=== PATIENT | male | born 1995 | race Caucasian/White ===

== ENCOUNTER 2017-01-16 09:16 | Emergency (ER) | payer BC ==
[2017-01-16 09:51] VITALS: BP 126/62
--- NOTE | 2017-01-16 10:49 | UC ---
Respiratory Complaint HPI - HPI Summary HPI Summary: Pt c/o cough, nasal congestion, chills, malaise, X 4 days "burning chest" x 1 day. - History of Current Complaint Chief Complaint: UCRespiratory Stated Complaint: COLD SYMPTOMS Time Seen by Provider: 01/16/17 10:41 Hx Obtained From: Patient Onset/Duration: Gradual Onset, Lasting Days, Worse Since - onset Timing: Constant Severity Initially: Mild Severity Currently: Mild Character: Cough: Nonproductive Associated Signs And Symptoms: Positive: Fever, Chills, URI, Nasal Congestion - Risk Factors Pulmonary Embolism Risk Factors: Negative Cardiac Risk Factors: Negative Pseudomonas Risk Factors: Negative Tuberculosis Risk Factors: Negative - Allergies/Home Medications Allergies/Adverse Reactions: Allergies Allergy/AdvReac Type Severity Reaction Status Date / Time No Known Allergies Allergy Verified 01/16/17 09:50 PMH/Surg Hx/FS Hx/Imm Hx Previously Healthy: Yes - Surgical History Surgical History: None - Family History Known Family History: Positive: Cardiac Disease - Social History Occupation: Employed Full-time, Student - [employer] Lives: With Family Alcohol Use: Rare Substance Use Type: None Smoking Status (MU): Never Smoked Tobacco Have You Smoked in the Last Year: No - Immunization History Most Recent Influenza Vaccination: none Vaccination Up to Date: Yes Review of Systems Constitutional: Chills, Fatigue Skin: Negative Eyes: Negative ENT: Sore Throat Respiratory: Cough Cardiovascular: Negative Gastrointestinal: Negative Genitourinary: Negative Motor: Negative Neurovascular: Negative Musculoskeletal: Myalgia Neurological: Negative Psychological: Negative Is Patient Immunocompromised?: No All Other Systems Reviewed And Are Negative: Yes Physical Exam Triage Information Reviewed: Yes Appearance: Ill-Appearing Vital Signs: Initial Vital Signs Temp 99 F 01/16/17 09:47 Pulse 88 01/16/17 09:47 Resp 18 01/16/17 09:47 BP 126/62 01/16/17 09:47 Pulse Ox 100 01/16/17 09:47 Vital Signs Reviewed: Yes Eye Exam: Normal ENT Exam: Other ENT: Positive: Nasal congestion Dental Exam: Normal Neck exam: Normal Respiratory Exam: Normal Cardiovascular Exam: Normal Musculoskeletal Exam: Normal Neurological Exam: Normal Psychological Exam: Normal Skin Exam: Normal UC Diagnostic Evaluation - Laboratory O2 Sat by Pulse Oximetry: 100 Respiratory Course/Dx - Differential Dx/Diagnosis Differential Diagnosis/HQI/PQRI: Bronchitis, Influenza, Sinusitis Provider Diagnoses: Bronchitis. sinusitis Discharge - Discharge Plan Condition: Stable Disposition: HOME Prescriptions: Amoxicillin PO (*) [Amoxicillin 875 MG (*)] 875 mg PO Q12H #14 tab Pseudoephedrine-Guaifenesin [Mucinex D 60-600 mg] 1 tab PO DAILY #7 tab Patient Education Materials: Sinusitis (ED), Acute Bronchitis (ED) Referrals: [facility] [Outside] - If Needed
== END 2017-01-16 10:56 | disposition home or self-care (01) ==
LOC: UCCORT 09:16
DX: J40 Bronchitis, not specified as acute or chronic (principal); J32.9 Chronic sinusitis, unspecified
CPT/HCPCS: 99202; G0463

== ENCOUNTER 2017-04-24 19:53 | Emergency (ER) | payer BC ==
[2017-04-24 20:58] VITALS: BP 137/72
[2017-04-24] MEDS ORDERED: Acetaminophen TAB* 325 MG PO ONE (21:53)
--- NOTE | 2017-04-24 21:54 | UC ---
FLU HPI - HPI Summary HPI Summary: Pt with sore throat, non productive cough, wheeze and body aches since last pm + fevers Pt with + contact no sob, cp, abd pain no n/v/d Pt did not take any OTC products + fatigue pt states felt "couldn't get out of bed" missed class today - [employer] Pt's medications reviewed this visit - History of Current Complaint Chief Complaint: UCGeneralIllness Stated Complaint: SORE THROAT/HEADACHE/COUGH Time Seen by Provider: 04/24/17 21:48 Hx Obtained From: Patient Onset/Duration: Sudden Onset Severity Currently: Mild Severity Initially: Moderate Pain Intensity: 6 Pain Scale Used: 0-10 Numeric Associated Signs & Symptoms: Positive: Fever, Myalgia, Cough, Headache Related Hx: Possible Flu/Infectious Exposure - Allergy/Home Medications Allergies/Adverse Reactions: Allergies Allergy/AdvReac Type Severity Reaction Status Date / Time No Known Allergies Allergy Verified 01/16/17 09:50 PMH/Surg Hx/FS Hx/Imm Hx Previously Healthy: Yes - Surgical History Surgical History: None - Family History Known Family History: Positive: Cardiac Disease - Social History Occupation: Student Lives: With Family Alcohol Use: Rare Substance Use Type: None Smoking Status (MU): Never Smoked Tobacco Have You Smoked in the Last Year: No - Immunization History Most Recent Influenza Vaccination: none Vaccination Up to Date: Yes Review of Systems Constitutional: Fever Skin: Negative Eyes: Negative ENT: Sore Throat, Nasal Discharge, Sinus Congestion Respiratory: Cough Cardiovascular: Negative Gastrointestinal: Negative Genitourinary: Negative Motor: Negative Neurovascular: Negative Musculoskeletal: Arthralgia, Myalgia Neurological: Negative Psychological: Negative All Other Systems Reviewed And Are Negative: Yes Physical Exam Triage Information Reviewed: Yes Appearance: Well-Nourished - tired appearing, coarse cough Vital Signs: Initial Vital Signs Temp 99.4 F 04/24/17 20:53 Pulse 106 04/24/17 20:53 Resp 16 04/24/17 20:53 BP 137/72 04/24/17 20:53 Pulse Ox 98 04/24/17 20:53 Eye Exam: Normal Eyes: Positive: Conjunctiva Clear ENT: Positive: Other - TM x 2 clear turbinates inflammed and boggy + PND no exudate + erythema uvula midline Dental Exam: Normal Neck exam: Normal Neck: Positive: Supple, Nontender, No Lymphadenopathy Respiratory: Positive: Chest non-tender, Lungs clear, Other: - coarse dry cough Cardiovascular Exam: Normal Cardiovascular: Positive: RRR, No Murmur, Pulses Normal Abdominal Exam: Normal Abdomen Description: Positive: Nontender, No Organomegaly, Soft Musculoskeletal Exam: Normal Neurological Exam: Normal Psychological Exam: Normal Skin Exam: Normal Flu Course/Dx - Course Course Of Treatment: pt with body aches, fevers, cough x 2 days. Pt with fever here -no antipyretic today. Pt with + flu here. hydrate. motrin/apap. secretion precaution. school note. return precaution - Differential Dx/Diagnosis Provider Diagnoses: influenza Discharge - Discharge Plan Condition: Stable Disposition: HOME Prescriptions: Oseltamivir CAP* [Tamiflu CAP*] 75 mg PO BID #9 cap Patient Education Materials: Influenza (ED) Forms: *Gen. Provider Communication, *Work Release Referrals: No Primary Care Phys,NOPCP [Primary Care Provider] - Additional Instructions: - Stay well hydrated. Drink plenty of non-alcoholic, non-caffinated beverages. - Alternate ibuprofen (Advil, Motrin) 600mg and Tylenol every 3 hours for pain or fever. Take with food. Do NOT take for more than 4-5 days. - These infections are spread by secretions - do NOT share eating or drinking utensils - clean items you share with other people such as cell phones, computer mouse, TV remote, computer tablets, etc. After you have taken Tamiflu for 3 days, change your toothbrush and your pillowcase. - get plenty of restful sleep - humidify the air in the room where you sleep - boil water, run a hot steam shower, vaporizer, cups of water by heat register - okay to take over the counter decongestant and cough medication - contact student health, return here, or go to the emergency department with questions or concerns
[2017-04-24] MEDS ORDERED: Oseltamivir CAP* 75 MG CAP PO ONE (22:37)
== END 2017-04-24 22:48 | disposition home or self-care (01) ==
LOC: UCCORT 19:53
DX: J11.1 Influenza due to unidentified influenza virus with other respiratory manifestations (principal)
CPT/HCPCS: 87502; 99212; A9270-GY; G0463

== ENCOUNTER 2018-05-17 15:27 | Emergency (ER) | payer BC, OTHER ==
[2018-05-17 16:04] VITALS: BP 146/80
[2018-05-17] MEDS ORDERED: Lidocaine 1%* 5 ML VIAL INJ ONE (16:05)
--- NOTE | 2018-05-17 16:05 | UC ---
General HPI - HPI Summary HPI Summary: PT HAD AN EXHAUST PART HIT HIM ON THE L HAND CAUSING A CUT. OCCURRED AT WORK. NO FB SENSATION OR LIMITED ROM. LAST TETANUS WAS IN 2013. - History of Current Complaint Chief Complaint: UCLaceration Stated Complaint: LEFT HAND INJURY (WC) Time Seen by Provider: 05/17/18 15:59 Hx Obtained From: Patient Onset/Duration: Sudden Onset Pain Intensity: 2 Associated Signs & Symptoms: Negative: Edema, Fever, Weakness - Allergy/Home Medications Allergies/Adverse Reactions: Allergies Allergy/AdvReac Type Severity Reaction Status Date / Time No Known Allergies Allergy Verified 05/17/18 15:56 Home Medications: Home Medications NK [No Home Medications Reported] 05/17/18 [History Confirmed 05/17/18] PMH/Surg Hx/FS Hx/Imm Hx Previously Healthy: Yes - Surgical History Surgical History: None - Family History Known Family History: Positive: Cardiac Disease - Social History Occupation: Employed Full-time Alcohol Use: Rare Substance Use Type: None Smoking Status (MU): Never Smoked Tobacco Have You Smoked in the Last Year: No - Immunization History Most Recent Influenza Vaccination: none Hx Tetanus, Diphtheria Vaccination: Yes Vaccination Up to Date: Yes Review of Systems All Other Systems Reviewed And Are Negative: Yes Physical Exam Triage Information Reviewed: Yes Appearance: Well-Appearing Vital Signs: Initial Vital Signs Temp 99.3 F 05/17/18 15:50 Pulse 86 05/17/18 15:50 Resp 18 05/17/18 15:50 BP 146/80 05/17/18 15:50 Pulse Ox 98 05/17/18 15:50 Vital Signs Reviewed: Yes Eyes: Positive: Conjunctiva Clear ENT: Positive: Normal ENT inspection Respiratory: Positive: Lungs clear Cardiovascular: Positive: RRR Abdomen Description: Positive: Nontender Musculoskeletal: Positive: Other: - L HAND: 4CM LACERATION DORSUM. FAT SEEN. NO FB, MM OR TENDON INJURY. HAND HAS FULL S/V/M FUNCTION. DORSAL FOREARM WITH A VERY SUPERFICIAL ABRASION. Neurological: Positive: Alert Psychological: Positive: Age Appropriate Behavior Skin Exam: Normal Course/Dx - Course Course Of Treatment: PROCEDURE: PT WASHED THE L FOREARM ABRASION WITH SOAP AND WATER. TIME OUT. THE L HAND WAS PREP WITH BETADINE. LOCAL WITH 1% LIDOCAINE. WOUND EXPLORED AND NO FB , MUSCLE, TENDON INJURY FOUND. IRRIGATED UNDER PRESSURE WITH STERILE NACL 500ML. SITE PREP AGAIN WITH BETADINE, DRAP STERILE FASHION AND CLOSED WITH 5-0 NYLON AND 3 SIMPLE PLUS 2 HORIZONTAL STITCHES. STERILE TECHNIQUE USED. PT TOLERATED WELL. LENGTH IS 4CM. NURSING APPLIED A DRESSING. ONLY SCANT BLEEDING FROM WOUND. NO HX HTN, BP VISIT RELATED. - Diagnoses Provider Diagnosis: Laceration of left hand Discharge - Sign-Out/Discharge Documenting (check all that apply): Patient Departure All imaging exams completed and their final reports reviewed: No Studies - Discharge Plan Condition: Stable Disposition: HOME Patient Education Materials: Care For Your Stitches (DC) Referrals: No Primary Care Phys,NOPCP [Primary Care Provider] - Additional Instructions: RETURN IN 7-10 DAYS FOR SUTURE REMOVAL. - Billing Disposition and Condition Condition: STABLE Disposition: Home
== END 2018-05-17 16:40 | disposition home or self-care (01) ==
LOC: UCCORT 15:27
DX: S61.412A Laceration without foreign body of left hand, initial encounter (principal); X58.XXXA Exposure to other specified factors, initial encounter; Y92.9 Unspecified place or not applicable
CPT/HCPCS: 12002; 99211; G0463

== ENCOUNTER 2018-05-27 17:42 | Emergency (ER) | payer OTHER ==
--- NOTE | 2018-05-27 18:11 | UC ---
Skin Complaint HPI - HPI Summary HPI Summary: Sutures in dorsum of left hand 10 days ago after cutting it. Pt's tetanus immunization is up to date. He is here for suture removal. He states he is a [employer] and last year she received numerous vaccinations including his tetanus immunization. - History of Current Complaint Time Seen by Provider: 05/27/18 18:00 Stated Complaint: SUTURE REMOVAL Hx Obtained From: Patient Onset/Duration: Other Skin Exposure Onset/Duration: Days Ago - Laceration occurred 10 days ago. Onset Severity: Moderate Current Severity: None Location: Hand (Left) - Dorsum of left hand Aggravating Factor(s): Nothing Alleviating Factor(s): Other - Patient has healed and sutures are intact. Associated Signs & Symptoms: Positive: Negative - Allergy/Home Medications Allergies/Adverse Reactions: Allergies Allergy/AdvReac Type Severity Reaction Status Date / Time No Known Allergies Allergy Verified 05/27/18 18:14 PMH/Surg Hx/FS Hx/Imm Hx Previously Healthy: Yes - Surgical History Surgical History: None - Family History Known Family History: Positive: Cardiac Disease - Social History Alcohol Use: Rare Substance Use Type: None Smoking Status (MU): Never Smoked Tobacco Have You Smoked in the Last Year: No - Immunization History Most Recent Influenza Vaccination: none Most Recent Tetanus Shot: 2013 Hx Tetanus, Diphtheria Vaccination: Yes Vaccination Up to Date: Yes Review of Systems All Other Systems Reviewed And Are Negative: Yes Skin: Positive: Other - Healed laceration over dorsum of left hand sutures intact. Musculoskeletal: Positive: Negative Neurological: Positive: Negative Psychological: Positive: Negative Physical Exam Triage Information Reviewed: Yes Appearance: Well-Appearing, No Pain Distress, Well-Nourished Vital Signs Reviewed: Yes Musculoskeletal: Positive: Strength Intact, ROM Intact Neurological Exam: Normal Neurological: Positive: Alert, Muscle Tone Normal Psychological Exam: Normal Skin Exam: Other - Good peripheral pulses neuro sensation and capillary refill. Good finger strength of flexion and extension against resistance. There is a healed laceration of the dorsum of his left hand. 5 sutures were removed without difficulty. There is a small amount of erythema where the sutures were placed however no evidence of a wound infection. Course/Dx - Course Course Of Treatment: Patient is comfortable here. 5 sutures were removed without difficulty and patient tolerated the procedure well. Band-Aid was applied. - Diagnoses Provider Diagnosis: Encounter for removal of sutures Discharge - Sign-Out/Discharge Documenting (check all that apply): Patient Departure All imaging exams completed and their final reports reviewed: No Studies - Discharge Plan Condition: Good Disposition: HOME Patient Education Materials: Stitches Removal (ED) Referrals: No Primary Care Phys,NOPCP [Primary Care Provider] - Additional Instructions: Keep covered as needed. Please call [facility] at [phone] to get help establishing care with a primary care provider. - Billing Disposition and Condition Condition: GOOD Disposition: Home
[2018-05-27 18:14] VITALS: BP 135/64
== END 2018-05-27 18:16 | disposition home or self-care (01) ==
LOC: UCCORT 17:42
DX: S61.412D Laceration without foreign body of left hand, subsequent encounter (principal); X58.XXXD Exposure to other specified factors, subsequent encounter

== ENCOUNTER 2019-03-31 12:37 | Emergency (ER) | payer BC, OTHER ==
[2019-03-31 13:39] VITALS: BP 126/56
[2019-03-31] MEDS ORDERED: Acetaminophen TAB* 325 MG PO ONE (13:56)
--- NOTE | 2019-03-31 14:16 | UC ---
FLU HPI - HPI Summary HPI Summary: Pt presents with sudden onset of fever, chills, body aches, and fatigue X 2 days. Pt did not get flu vaccine this year - History of Current Complaint Chief Complaint: UCRespiratory Stated Complaint: COUGH FEVER HEADACHE Time Seen by Provider: 03/31/19 14:05 Hx Obtained From: Patient Onset/Duration: Sudden Onset, Lasting Days, Still Present, Worse Since - onset Severity Currently: Mild Severity Initially: Moderate Pain Intensity: 3 Associated Signs & Symptoms: Positive: Fever, Myalgia, Cough, Sore Throat, Nasal Congestion, Headache Related Hx: Possible Flu/Infectious Exposure - Risk Factors Influenza Risk Factors: Negative - Allergy/Home Medications Allergies/Adverse Reactions: Allergies Allergy/AdvReac Type Severity Reaction Status Date / Time No Known Allergies Allergy Verified 03/31/19 13:36 Home Medications: Home Medications Ibuprofen TAB* [Advil TAB*] 600 mg PO Q6H PRN 03/31/19 [History Confirmed ] PMH/Surg Hx/FS Hx/Imm Hx Previously Healthy: Yes - Surgical History Surgical History: None - Family History Known Family History: Positive: Cardiac Disease - Social History Occupation: Employed Full-time Lives: With Family Alcohol Use: Rare Substance Use Type: None Smoking Status (MU): Never Smoked Tobacco Have You Smoked in the Last Year: No - Immunization History Most Recent Influenza Vaccination: none Most Recent Tetanus Shot: 2013 Hx Tetanus, Diphtheria Vaccination: Yes Vaccination Up to Date: Yes Review of Systems All Other Systems Reviewed And Are Negative: Yes Constitutional: Positive: Fever, Chills, Fatigue Skin: Positive: Negative Eyes: Positive: Negative ENT: Positive: Sore Throat, Ear Ache, Sinus Congestion Respiratory: Positive: Cough Cardiovascular: Positive: Negative Gastrointestinal: Positive: Negative Genitourinary: Positive: Negative Motor: Positive: Negative Neurovascular: Positive: Negative Musculoskeletal: Positive: Myalgia Neurological: Positive: Headache Psychological: Positive: Negative Is Patient Immunocompromised?: No Physical Exam Triage Information Reviewed: Yes Appearance: Ill-Appearing Vital Signs: Initial Vital Signs Temp 102.5 F 03/31/19 13:34 Pulse 122 03/31/19 13:34 Resp 20 03/31/19 13:34 BP 126/56 03/31/19 13:34 Pulse Ox 99 03/31/19 13:34 Vital Signs Reviewed: Yes Eye Exam: Normal ENT: Positive: Nasal congestion Dental Exam: Normal Neck exam: Normal Respiratory Exam: Normal Musculoskeletal Exam: Normal Neurological Exam: Normal Psychological Exam: Normal Skin Exam: Normal Flu Course/Dx - Differential Dx/Diagnosis Differential Diagnosis/HQI/PQRI: Influenza, Pneumonia, Upper Respiratory Infection Provider Diagnosis: Influenza Discharge ED - Sign-Out/Discharge Documenting (check all that apply): Patient Departure All imaging exams completed and their final reports reviewed: No Studies - Discharge Plan Condition: Stable Disposition: HOME Prescriptions: Oseltamivir CAP* [Tamiflu CAP*] 75 mg PO Q12H #10 cap Patient Education Materials: Influenza (ED) Forms: *Work Release Referrals: Tala Staley MD [Primary Care Provider] - If Needed - Billing Disposition and Condition Condition: STABLE Disposition: Home
[2019-04-02 10:13] LABS: Influenza B Molecular POSITIVE (Negative)
== END 2019-03-31 14:43 | disposition home or self-care (01) ==
LOC: UCCORT 12:37
DX: J11.1 Influenza due to unidentified influenza virus with other respiratory manifestations (principal); H92.09 Otalgia, unspecified ear
CPT/HCPCS: 99212; A9270-GY; G0463